=== PATIENT | male | born 1960 | race Caucasian/White ===

== ENCOUNTER 2017-06-22 17:32 | Emergency (ER) | payer SELFPAY ==
[~2017-06-22] VITALS: Ht 165.1 cm; Wt 63.5 kg
[2017-06-22] MEDS ORDERED: NORCO 5-325 TA1 EACH PO (19:22)
[2017-06-22] MEDS ORDERED: NAPROSYN500 MG PO (19:39)
== END 2017-06-22 19:42 | disposition home or self-care (01) ==
LOC: ED 17:32
DX: S40.022A Contusion of left upper arm, initial encounter (principal); F17.200 Nicotine dependence, unspecified, uncomplicated; W01.198A Fall on same level from slipping, tripping and stumbling with subsequent striking against other object, initial encounter; Y93.89 Activity, other specified; Y92.89 Other specified places as the place of occurrence of the external cause; Y99.8 Other external cause status